=== PATIENT | female | born 1990 | race Caucasian/White ===

== ENCOUNTER 2018-09-13 15:52 | Inpatient (IN) | payer BC ==
[2018-09-13 16:41] VITALS: BMI 31.9
[2018-09-13] MEDS ORDERED: Promethazine HCl 25 MG/ML VIAL IM PRN ×2 (18:28→20:06)
[2018-09-13] MEDS ORDERED: Docusate 100 MG CAP PO PRN (18:28)
[2018-09-13] MEDS ORDERED: Butorphanol Tartrate 1 MG/ML VIAL SLOW IVP PRN (18:28)
[2018-09-13] MEDS ORDERED: Ondansetron PF 4 MG/2 ML Vial IVP PRN ×2 (18:28→20:06)
[2018-09-13] MEDS ORDERED: Acetaminophen 500 MG TAB PO PRN (18:28)
[2018-09-13] MEDS ORDERED: NS w/ Oxytocin 10 units 500 ML IV SCH (18:30)
[2018-09-13] MEDS: Lactated Ringer's 1,000 ML IV SCH ×2 (18:30→20:51)
--- NOTE | 2018-09-13 19:04 | PDOC.FPROB ---
FMR OB H&P: HPI - History of Present Illness Chief Complaint: pelvic pain, LOF History of Present Illness: 28 yo at 39.0 wks by LMP/2nd trimester US. She is coming in today for LOF today around 6hours [employer]. Also has been having pelvic pain/ contractions starting 14hrs [employer]. Denies AVILA, SOB, CP, RUQ pain, scotoma. Reports mildly decreased FM, but still feeling baby move. Smokes 1/4 ppd during . Previous OB history significant for and ectopic. Primary Care Physician: Sandy CALDWELL FMR OB H&P: Current - Care : 3 Para: [id number] Gestational age: 39.0 Due date: 10/21/18 Dating Criteria: LMP, 2nd trimester US - OB Labs Blood type: O RH: positive Antibody Screen: negative HIV: negative RPR: negative HepBsAg: negative Rubella: immune Quad screen: negative Urine drug screen: negative 1 hour gtt: WNL GBS: negative FMR OB H&P: History - Past Medical History PMH: anxiety, depression, tobacco abuse - OB History OB History: Preg 1: elective Preg 2: ectopic, tube - Surgical History Sx History: salpingectomy 2010 tonsilectomy - Social History Social History: tobacco smoker 1/4 ppd FMR OB H&P: Medications - Current Home Medications: Medication Instructions Recorded Confirmed Type Cetirizine HCl [Zyrtec] 10 mg PO DAILY 09/13/18 09/13/18 History Pnv No.95/Ferrous Fum/Folic AC 1 each PO DAILY 09/13/18 09/13/18 History [ Vitamin Tablet] Ranitidine HCl [Zantac 75] 75 mg PO BID 09/13/18 09/13/18 History Allergies/Adverse Reactions: Allergies Allergy/AdvReac Type Severity Reaction Status Date / Time No Known Drug Allergies Allergy Verified 09/13/18 16:29 FMR OB H&P: ROS - Review of Systems General: denies: fever/chills, weight/appetite/sleep changes Eyes: denies: vision changes, double vision ENT: denies: nasal congestion, rhinorrhea Cardiovascular: denies: chest pain, edema Gastrointestinal: denies: nausea, vomiting Genitourinary (Female): reports: vaginal pain. denies: vaginal bleeding FMR OB H&P: Vital Signs - Maternal Vital signs: Vital Signs - First Documented Temp Pulse Resp BP 98.2 F 82 20 126/82 09/13/18 16:28 09/13/18 16:28 09/13/18 16:28 09/13/18 16:28 - Heart Tones Variability: moderate Acceleration: present Deceleration: absent Category: category 1 [place] contractions every: none on monitor FMR OB H&P: Physical Exam - Physical Exam General: NAD, awake, alert and oriented HEENT: PERRLA, MMM Neck: supple Heart: RRR, normal S1/S2 General: CTAB, no retractions Abdomen: soft Neurological: sensation to pain,touch and proprioception grossly normal Lymphatic: no unusual bruising or bleeding Psychiatric: intact recent and remote memory - Pelvic Exam SVE: /1 Presentation: vertex FMR OB H&P: A/P - Problem List (1) Normal intrauterine in third trimester Current Visit: Yes Status: Acute Code(s): Z34.93 - ENCNTR FOR SUPRVSN OF NORMAL PREG, UNSP, THIRD TRIMESTER (2) Tobacco use during Current Visit: Yes Status: Acute Code(s): O99.330 - SMOKING (TOBACCO) COMPLICATING , UNSP TRIMESTER (3) Asthma Current Visit: Yes Status: Acute Code(s): J45.909 - UNSPECIFIED ASTHMA, UNCOMPLICATED Disposition: will admit to obstetrics for expectant labor Discussion: Date/Time: 09/13/18 1900 28 yo at 39.0 wks here for ROM today at 11:00, expectant management -recheck in 2 hours for cervical change -plan to start pitocin at that time This H&P was discussed with Dr. Gonsales who agrees with the above documentation and plan. Signature: Jonel Dominguez DO, PGY3
[2018-09-13] MEDS ORDERED: Fentanyl 4 mcg/Bup 0.1% Cadd 100 ML ONE (19:11)
[2018-09-13 19:19] LABS: Hemoglobin 14.3 g/dL (12.0-16.0); Mean Corpuscular HGB CONC 34.9 g/dL (32.0-36.0); Mean Corpuscular Hemoglobin 31.3 pg (27.0-31.0); Mean Corpuscular Volume 89.7 fL (78.0-98.0); Mean Platelet Volume 8.7 fL (7.4-10.4); Platelet Count 242 thou/uL (130-400); RBC Distribution Width 12.3 % (11.5-14.5); Red Blood Cell (RBC) Count 4.56 mill/uL (4.20-5.40)
[2018-09-13 19:50] LABS: HBSAg Index 0.23 S/CO (0-0.99); Hep B Surf Ag Non-Reactive S/CO (NonReactive); Syphilis Antibody Nonreactive (Nonreactive); Syphilis Antibody Index 0.03 S/CO (<1.00 Non-Reactive)
[2018-09-13] MEDS ORDERED: Lactated Ringer's 500 ML IV PRN (20:06)
[2018-09-13] MEDS ORDERED: Acetaminophen 325 MG TAB PO PRN (20:06)
[2018-09-13] MEDS ORDERED: Naloxone HCl 0.4 mg/ml Vial IVP PRN ×2 (20:06)
[2018-09-13] MEDS ORDERED: Eucerin (Mineral Oil/Petrolatum,White) 30 gm Jar TOP PRN (20:06)
[2018-09-13] MEDS ORDERED: ePHEDrine/0.9% NaCl/PF SYRINGE 50 mg/10 ml SLOW IVP PRN (20:06)
[2018-09-13] MEDS ORDERED: diphenhydrAMINE 50 MG/ML VIAL IVP PRN (20:06)
[2018-09-13] MEDS ORDERED: Fentanyl 4 mcg/Bupivacaine 0.1% Cassette 100 ML EPIDURAL SCH (20:15)
[2018-09-13] MEDS ORDERED: Communication Order-Pharmacy FS SCH (20:15)
--- NOTE | 2018-09-13 23:06 | PDOC.LDPN ---
Labor & Delivery Progress Note - Subjective Subjective: comfortable (28 yo @ 39wks admitted for PROM) - Objective Vital signs reviewed and normal: yes General: NAD, resting Dilation: 4 Effacement: 100% Station: -1 FHT: category 1 [place] contractions every: 2-3 minutes Procedures: epidural placed - Assessment (1) PROM (premature rupture of membranes) Code(s): O42.90 - ANA ROM, 7TH0 BETW RUPT & ONST LABR, UNSP WEEKS OF GEST Current Visit: Yes Status: Acute (2) Normal intrauterine in third trimester Code(s): Z34.93 - ENCNTR FOR SUPRVSN OF NORMAL PREG, UNSP, THIRD TRIMESTER Current Visit: Yes Status: Acute Plan: continue plan of care, pitocin for augmentation, other (recheck cervix in two hours)
[2018-09-14] MEDS ORDERED: Fentanyl 4 mcg/Bup 0.1% Cadd 100 ML ONE (01:47)
[2018-09-14] MEDS ORDERED: Lidocaine 1% (PF) 30 ML VIAL ONE (03:14)
[2018-09-14] MEDS: NS / Oxytocin 40 units/1000ml 1,000 ML ONE ×2 (03:55→05:20)
[2018-09-14] MEDS ORDERED: NS / Oxytocin 40 units/1000ml 1,000 ML ONE (05:18)
[2018-09-14] MEDS ORDERED: NS / Oxytocin 40 units/1000ml 1,000 ML IV SCH (06:45)
[2018-09-14] MEDS ORDERED: Adacel (T-DAP) 0.5 ML VIAL IM ONE (06:45)
[2018-09-14] MEDS ORDERED: Milk Of Magnesia 30 ML UDCUP PO PRN (06:45)
[2018-09-14] MEDS ORDERED: Bisacodyl 10 MG SUPP PR PRN (06:45)
[2018-09-14] MEDS: Ibuprofen 800 MG TAB PO SCH ×3 (07:45→21:42)
[2018-09-14] MEDS: Docusate Calcium (SURFAK) 240 MG CAP PO SCH ×2 (07:45→21:42)
--- NOTE | 2018-09-14 12:44 | DN-2 ---
DELIVERING PHYSICIAN: Emily Cavazos, PGY1. ATTENDING: Dr. Farooq Gonsales. PROCEDURE: Spontaneous vaginal delivery. ANESTHESIA: Epidural. ESTIMATED BLOOD LOSS: 341 mL. PREOPERATIVE DIAGNOSIS: Term intrauterine in labor. POSTOPERATIVE DIAGNOSIS: Term intrauterine , delivered. INDICATIONS: A 28-year-old G3, P0-0-2-0, now G3, P1-0-2-1 at 39.0 weeks, who delivered a viable fema le infant at 0355. Following an uneventful antepartum course, a vigorous female was delivered over a n intact peritoneum in the occiput anterior position. Anterior shoulder and then remainder of the perla dy delivered. No nuchal cord. The head was held down and mouth and nares were bulb suctioned. Cord clamped after delayed cord clamping and cord blood collected. Umbilical cord avulsed and placenta r emoved via manual extraction with a 3-vessel cord noted. Fundal massage was performed and the fundus was firm. The cervix and vagina were inspected and found to have a first degree laceration repaired with 3-0 Vicryl SH needle in the usual fashion with good approximation and hemostasis. went to nursery in good condition for routine care. Apgars were 8 and 9 at 1 and 5 minutes respec tively. The patient tolerated delivery well and went to after routine recovery care.
[2018-09-14] MEDS: Ferrous Sulfate 325 MG TAB PO SCH ×2 (14:28→18:44)
[2018-09-14] MEDS ORDERED: Benzocaine/Menthol 20-0.5% 60 ML CAN TOP PRN (21:57)
[2018-09-15 05:33] LABS: Hemoglobin 11.4 g/dL (12.0-16.0); Mean Corpuscular HGB CONC 34.2 g/dL (32.0-36.0); Mean Corpuscular Hemoglobin 31.1 pg (27.0-31.0); Mean Corpuscular Volume 90.9 fL (78.0-98.0); Mean Platelet Volume 8.3 fL (7.4-10.4); Platelet Count 203 thou/uL (130-400); RBC Distribution Width 12.1 % (11.5-14.5); Red Blood Cell (RBC) Count 3.68 mill/uL (4.20-5.40); White Blood Cell (WBC) Count 9.6 thou/uL (4.8-10.8)
[2018-09-15] MEDS: Ibuprofen 800 MG TAB PO SCH ×3 (05:33→21:49)
--- NOTE | 2018-09-15 07:06 | PDOC.PP ---
Post Progress Note Post Day #: 1 Subjective: Patient doing well. No significant overnight events. Tolerating PO. Ambulating without difficulty. PO intake tolerated: yes Flatus: yes Ambulation: yes Vital Signs (12 hours) Temp Pulse Resp BP Pulse Ox 09/15/18 00:00 98.0 F 61 16 116/68 09/14/18 20:00 98.2 F 61 16 119/81 97 Weight Weight 76.657 kg - Physical Examination General: NAD Cardiovascular: RRR Respiratory: non-labored breathing Abdominal: lochia (similar to period), no distention, appropriately TTP Skin: no rash Neurological: no gross focal deficits Psychiatric: A&Ox3, normal affect Result Diagrams: 09/15/18 04:54 Additional Labs: Post Labs Blood Type O POSITIVE 09/13/18 17:28 Hep Bs Antigen Non-Reactive S/CO (NonReactive) 09/13/18 17:28 (1) Term delivered Code(s): O80 - ENCOUNTER FOR FULL-TERM UNCOMPLICATED DELIVERY Status: Acute Comment: 28 year old at 39.1 wks by LMP/2T US delivered TAGA F infant at 03:55 on 09/14/2018 vis . Apgars 8/9. - Routine PP care - Encourage ambulation - ; seeing licensed tax consultant. Some difficulty with latching. - Follow up with Sandy in 4-6 wks - Marketing Executive will be Sandy at [facility] - Uncertain of PP contraception at this time - Plan for d/c home tomorrow morning
[2018-09-15] MEDS: Ferrous Sulfate 325 MG TAB PO SCH ×2 (08:13→16:52)
[2018-09-15] MEDS: Docusate Calcium (SURFAK) 240 MG CAP PO SCH ×2 (09:31→21:49)
[2018-09-16] MEDS: Ibuprofen 800 MG TAB PO SCH (05:18)
--- NOTE | 2018-09-16 06:20 | PDOC.PP ---
Post Progress Note Post Day #: 2 Subjective: Patient feels well. Denies any new complaints. baby. PO intake tolerated: yes Flatus: yes Ambulation: yes Vital Signs (12 hours) Temp Pulse Resp BP Pulse Ox 09/15/18 20:00 98.3 F 63 16 123/81 97 Weight Weight 76.657 kg - Physical Examination General: NAD Cardiovascular: RRR Respiratory: clear to auscultation bilaterally Abdominal: + bowel sounds, no distention, appropriately TTP Extremities: negative homans (B) Neurological: no gross focal deficits Psychiatric: normal affect Result Diagrams: 09/15/18 04:54 Additional Labs: Post Labs Blood Type O POSITIVE 09/13/18 17:28 Hep Bs Antigen Non-Reactive S/CO (NonReactive) 09/13/18 17:28 (1) Term delivered Code(s): O80 - ENCOUNTER FOR FULL-TERM UNCOMPLICATED DELIVERY Status: Acute - Assessment/Plan 28 year old at 39.1 wks by LMP/2T US delivered TAGA F at 03:55 on 09/14/2018 vis . Apgars 8/9. - Routine PP care - Encourage ambulation - ; seeing training consultant. Baby now well. - Follow up with Sandy in 4-6 wks - Rn Occupational Health will be Sandy at [facility] - Uncertain of PP contraception at this time. Prefers to decide later. - Plan for d/c home today <Ania Seals - Last Filed: 09/16/18 09:26> Vital Signs (12 hours) Temp Pulse Resp BP Pulse Ox 09/16/18 08:45 96 09/16/18 07:51 98.4 F 66 20 110/72 98 Weight Weight 76.657 kg Result Diagrams: 09/15/18 04:54 Additional Labs: Post Labs Blood Type O POSITIVE 09/13/18 17:28 Hep Bs Antigen Non-Reactive S/CO (NonReactive) 09/13/18 17:28 <Rekha Ross - Last Filed: 09/16/18 11:11> Attending Addendum - Attending Addendum Date/Time: 09/16/18 1107 I personally evaluated the patient and discussed the management with Dr. Seals I agree with the History, Examination, Assessment and Plan documented above with any addition or exceptions noted below- Patient without complaints. Ambulating/voiding. A/P: 1) PPD#2 s/p - doing well. Plan to d/c home today. . <Rekha Ross - Last Filed: 09/16/18 11:11>
[2018-09-16] MEDS: Ferrous Sulfate 325 MG TAB PO SCH (07:33)
[2018-09-16 07:53] VITALS: BP 110/72; TEMP 98.4
[2018-09-16] MEDS: Docusate Calcium (SURFAK) 240 MG CAP PO SCH (09:17)
[2018-09-16] MEDS ORDERED: Lidocaine 2% MPF 10 ML AMP (For Epidural Use) ONE (14:45)
[2018-09-16] MEDS ORDERED: Bupivacaine/Epinephrine 0.25% 30 ML VIAL ONE (14:45)
== END 2018-09-16 13:30 | disposition home or self-care (01) | DRG 807 ==
LOC: L&D/OP 15:52 → L&D 17:14 → 3SW 09-14 07:32
PROVIDERS: ADMIT Family Medicine; ATTEND Family Medicine
PROC: 10E0XZZ Delivery of Products of Conception, External Approach (ICD-10-PCS; principal; 2018-09-14)
PROC: 10D17Z9 Manual Extraction of Products of Conception, Retained, Via Natural or Artificial Opening (ICD-10-PCS; 2018-09-14)
PROC: 0HQ9XZZ Repair Perineum Skin, External Approach (ICD-10-PCS; 2018-09-14)
DX: O42.90 Premature rupture of membranes, unspecified as to length of time between rupture and onset of labor, unspecified weeks of gestation (principal); Z37.0 Single live birth; O99.334 Smoking (tobacco) complicating childbirth; F17.210 Nicotine dependence, cigarettes, uncomplicated; Z3A.39 39 weeks gestation of pregnancy; O70.0 First degree perineal laceration during delivery; J45.909 Unspecified asthma, uncomplicated; O99.52 Diseases of the respiratory system complicating childbirth; O73.0 Retained placenta without hemorrhage; O76 Abnormality in fetal heart rate and rhythm complicating labor and delivery
CPT/HCPCS: 36415; 51702; 76815; 85027; 86780; 86850; 86900; 86901; 87340; 99285; J2001